=== PATIENT | female | born 2000 | race Caucasian/White ===

== ENCOUNTER 2020-07-15 14:31 | Emergency (ER) | payer OTHER, SELFPAY ==
[~2020-07-15] VITALS: Ht 154.9 cm; Wt 79.4 kg
[2020-07-15 14:35] VITALS: BP 124/86; Ht 154.9 cm; Wt 79.4 kg
== END 2020-07-15 15:01 | disposition home or self-care (01) ==
LOC: ED 14:31
DX: R50.9 Fever, unspecified (principal); M79.10 Myalgia, unspecified site; R05 Cough; Z20.828 Contact with and (suspected) exposure to other viral communicable diseases
CPT/HCPCS: U0003-CS